=== PATIENT | male | born 1990 | race Caucasian/White ===

== ENCOUNTER 2020-07-01 02:30 | Emergency (ER) | payer OTHER, SELFPAY ==
[2020-07-01 02:35] VITALS: BP 137/84; PULSE 74; RESP 18; TEMP 36.3; O2SAT 98
--- NOTE | 2020-07-01 02:36 | DI.CT.S_ITS ---
PROCEDURE: CT KIDNEY URETER BLADDER (KUB) INDICATIONS: severe right flank pain with radiation to groin TECHNIQUE: Noncontrast 5 mm thick sections acquired from the diaphragms to the symphysis. 5 mm thick coronal and sagittal reformats were then performed. For radiation dose reduction, the following was used: automated exposure control, adjustment of mA and/or kV according to patient size. COMPARISON: None. FINDINGS: Image quality: Excellent. Lung bases: Lung bases are clear. Heart size is normal. Urinary system: There is a 4 mm stone distal right ureter at the ureterovesical junction. There is mild right hydronephrosis and hydroureter. Mild perinephric stranding in right kidney. No left renal stone or hydronephrosis. Both kidneys are normal in size. Bladder wall thickness is normal; no calcified bladder stones. Other solid organs: Liver is normal in size. Gallbladder is normal. Pancreas is normal in contours. Spleen is normal in size. No adrenal nodules. Peritoneum and bowel: Unenhanced bowel loops demonstrate normal wall thickness and caliber. Normal appendix. No free fluid or air. Nodes and vessels: No retroperitoneal or mesenteric adenopathy by size criteria. Aorta and inferior vena cava are normal in caliber. Abdominal wall: No ventral hernias. Pelvis: No free pelvic fluid. No inguinal hernias or adenopathy. Bones: No suspicious bony lesions. No vertebral body compression fractures. IMPRESSION: 1. A 4 mm obstructing stone in the distal right ureter at the ureterovesical junction. There is mild right hydronephrosis and hydroureter with perinephric stranding. 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 Dictated by: Emy Edwards M.D. on 07/01/2020 at 8:07 Approved by: Emy Edwards M.D. on 07/01/2020 at 8:11
--- NOTE | 2020-07-01 02:53 | ED_ITS ---
HPI - Male Genitourinary General Chief complaint: Urogenital-Male Stated complaint: thinks kidney stone - nausea Time Seen by Provider: 07/01/20 02:31 Source: patient and family Mode of arrival: Ambulatory Limitations: no limitations History of Present Illness HPI Narrative: 30M non smoker with history of kidney stones presents with a friend and the chief complaint of sudden onset of R flank pain with radiation in to his right groin. He now has difficulty generating urine stream. He states the pain came on suddenly a few hours ago and is coming and going without any apparent provocation or palliation. At times he feels it is quite intense and he needs to pace in the room. At other times it is merely a dull ache from his groin to his back. He is nauseated but denies any vomiting. He denies any fever or chills. He has had no chest pain or shortness of breath. He denies any exposure to ill persons. He has had 1 kidney stone before, he states approximately 3 mm. MD Complaint: other Onset (ago): hour(s) Duration: intermittent Location: right inguinal region and right flank Radiation: right flank Severity: severe Quality: burning, sharp and stabbing Relieving factors: none Exacerbating factors: none Associated symptoms: Reports nausea/vomiting Related Data Sexually active: Yes Previous Rx's Medication Instructions Recorded hydrocodone-acetaminophen 1 tab PO Q4-6H PRN #10 tab 07/01/20 ketorolac 10 mg PO Q6H PRN #14 tab 07/01/20 ondansetron 4 mg PO TID-QID PRN #10 tab 07/01/20 tamsulosin [Flomax] 0.4 mg PO DAILY #10 cap 07/01/20 Review of Systems Constitutional Constitutional: Denies chills, Denies fatigue, Denies fever(s), Denies frequent falls, Denies lethargy and Denies weakness Eyes Eyes: Denies change in vision, Denies eye discharge, Denies irritation and Denie s loss of vision ENT Ears, Nose, Mouth, and Throat: Denies change in voice, Denies dizziness, Denies neck pain, Denies sore throat and Denies throat swelling Cardiovascular Cardiovascular: Denies chest pain, Denies irregular heart rhythm, Denies lightheadedness, Denies palpitations, Denies dyspnea, Denies dyspnea on exertion and Denies orthopnea Respiratory Respiratory: Denies cough, Denies dyspnea, Denies dyspnea on exertion and Denies wheezing Gastrointestinal Gastrointestinal: Denies abdominal pain, Denies change in bowel habits, Denies diarrhea, Denies nausea and Denies vomiting Genitourinary Genitourinary: Reports difficulty urinating and Reports flank pain Genitourinary: Reports flank pain Musculoskeletal Musculoskeletal: Denies neck pain and Denies numbness Integumentary/Breasts Skin/Breast: Denies pruritus, Denies erythema, Denies rash and Denies wounds Neurologic Neurologic: Denies behavioral changes, Denies confusion, Denies dizziness, Denies frequent falls, Denies loss of vision, Denies numbness and Denies weakness Psychiatric Psychiatric: Denies anxiety, Denies behavioral changes, Denies confusion, Denies depression, Denies homicidal ideation and Denies suicidal ideation Endocrine Endocrine: Denies fatigue, Denies flushing and Denies palpitations Hematologic/Lymphatic Hematologic/Lymphatic: Denies easy bruising Allergic/Immunologic Allergic/Immunologic: Denies urticaria, Denies throat swelling and Denies wheezing Patient History Social History Smoking Status: Never smoker Smoking Status: Never smoker alcohol intake frequency: 0-2 drinks per day Substance Use Type: does not use Exam Narrative Exam Narrative: GENERAL: [30] year old patient appears stated age. Well- nourished, well-developed patient, in mild distress. Obviously uncomfortable, rubbing his flank HEAD: Atraumatic. Normocephalic. EYES: Pupils equal round and reactive. Extraocular motions intact. No scleral icterus. No injection or drainage. ENT: Nose without bleeding, purulent drainage. Throat without erythema, tonsillar hypertrophy or exudate. Airway patent. NECK: Trachea midline. Non tender CARDIOVASCULAR: Regular rate and rhythm without murmurs, gallops, or rubs. RESPIRATORY: Clear to auscultation. Breath sounds equal bilaterally. No wheezes, rales, or rhonchi. GASTROINTESTINAL: Abdomen soft, non-tender, nondistended. EXTREMITIES: No edema or joint tenderness. BACK: Nontender without deformity or crepitance. No flank tenderness. NEURO: AOx3. SKIN: No rash or erythema of visible areas Initial Vital Signs Initial Vital Signs: Vital Signs Temperature 97.4 F L 07/01/20 02:35 Pulse Rate 74 07/01/20 02:35 Respiratory Rate 18 07/01/20 02:35 Blood Pressure 137/84 07/01/20 02:35 Pulse Oximetry 98 07/01/20 02:35 Course Orders Ordered: ED Orders 07/01/20 02:20 Basic Metabolic Panel Stat Complete Blood Count AUTO DIFF Stat 07/01/20 02:36 CT kidney ureter bladder (KUB) Stat 07/01/20 03:34 Urinalysis and Microscopic Stat 07/01/20 04:10 Creatinine & eGFR Stat Discontinued Medications Hydrocodone Bitart/Acetaminophen (Vicodin 5/325 Prepack) 1 bottle MISC SEEINSTR ONE Stop: 07/01/20 03:25 Last Admin: 07/01/20 04:48 Dose: 1 bottle Documented by: MARIMAR Hydromorphone HCl (Dilaudid) 1 mg IV NOW ONE Stop: 07/01/20 03:25 Last Admin: 07/01/20 03:29 Dose: 1 mg Documented by: [email or web address] Sodium Chloride (Normal Saline 0.9%) 1,000 mls @ 1,000 mls/hr IV BOLUS ONE Stop: 07/01/20 03:35 Last Infusion: 07/01/20 04:30 Dose: 0 mls/hr Documented by: Admin: 07/01/20 03:28 Dose: 1,000 mls/hr Documented by: CASSIE Lidocaine HCl 6.6 ml/ Sodium (Chloride) 56.6 mls @ 339.6 mls/hr IV NOW ONE Stop: 07/01/20 02:40 Last Infusion: 07/01/20 03:15 Dose: 0 mls/hr Documented by: Admin: 07/01/20 03:04 Dose: 339.6 mls/hr Documented by: [email or web address] Sodium Chloride (Normal Saline 0.9%) 1,000 mls @ 1,000 mls/hr IV BOLUS ONE Stop: 07/01/20 05:32 Last Infusion: 07/01/20 04:52 Dose: 0 mls/hr Documented by: Admin: 07/01/20 04:34 Dose: 1,000 mls/hr Documented by: MARIMAR Ketorolac Tromethamine (Toradol) 15 mg IV NOW ONE Stop: 07/01/20 02:37 Last Admin: 07/01/20 03:05 Dose: 15 mg Documented by: CASSIE Ondansetron HCl (Zofran Odt Prepack) 1 bottle MISC SEEINSTR ONE Stop: 07/01/20 03:25 Last Admin: 07/01/20 04:48 Dose: 1 bottle Documented by: MARIMAR Reevaluation(s) Reevaluation #1: patient feeling much better after the above stated therapies Vital Signs Vital signs: Vital Signs - 8 hr 07/01/20 02:35 07/01/20 04:53 Temperature 97.4 F L Pulse Rate 74 66 Respiratory Rate 18 14 Blood Pressure 137/84 125/76 Pulse Oximetry 98 100 MDM - Male Genitourinary Lab Data Result diagrams: 07/01/20 02:20 07/01/20 04:10 Labs: Lab Results 07/01/20 07/01/20 07/01/20 Range/Units 02:20 02:20 03:34 WBC 8.2 (4.5-11.0) X10^3/uL RBC 5.02 (4.5-5.9) X10^6/uL Hgb 14.7 (13.5-17.5) g/dL Hct 43.0 (41-53) % MCV 85.6 (80-100) fL MCH 29.3 (26-34) PG MCHC 34.3 (30-36) % RDW 12.3 (11.6-14.8) % Plt Count 233 (150-400) X10^3/uL Neut % (Auto) 64.8 (50-75) % Lymph % (Auto) 23.5 L (25-40) % Hodgeman % (Auto) 8.9 (3-14) % Eos % (Auto) 2.4 (2-4) % Baso % (Auto) 0.4 (0-2) % Neut # (Auto) 5300 (5078-6957) /uL Lymph # (Auto) 1900 (1556-6510) /uL Hodgeman # (Auto) 700 (0-900) /uL Eos # (Auto) 200 (0-450) /uL Baso # (Auto) 0 (0-100) /uL Sodium 134 L (137-145) mmol/L Potassium 3.7 (3.4-5.1) mmol/L Chloride 101 (98-107) mmol/L Carbon Dioxide 26 (22-32) mmol/L BUN 19 (9-20) mg/dL Creatinine 1.46 H (0.66-1.25) mg/dL Estimated GFR 57.1 L (>60) mL/min BUN/Creatinine Ratio 13.0 (6-22) Glucose 106 H (70-100) mg/dL Calcium 9.0 (8.4-10.2) mg/dL Urine Color Yellow Urine Appearance Clear Urine pH 5.0 (4.5-8.0) Ur Specific Rupert 1.015 (1.000-1.035) Urine Protein Negative (Negative) Urine Glucose (UA) Negative (Negative) g/dL Urine Ketones Negative (NEGATIVE) Urine Occult Blood 1+ H (Negative) Urine Nitrate Negative (Negative) Urine Bilirubin Negative (NEGATIVE) Urine Urobilinogen 0.2 (0.2) E.U./dL Ur Leukocyte Esterase Negative (NEGATIVE) Urine RBC 1-5/hpf (0-5/HPF) Urine WBC None seen (0-5/HPF) Ur Squamous Epith Cells 0-1 /hpf (0-5/HPF) Urine Bacteria Occasional (0-1) (None) Urine Mucus 1+ H (Negative) Ur Culture Indicated? Cult not indicated 07/01/20 Range/Units 04:10 WBC (4.5-11.0) X10^3/uL RBC (4.5-5.9) X10^6/uL Hgb (13.5-17.5) g/dL Hct (41-53) % MCV (80-100) fL MCH (26-34) PG MCHC (30-36) % RDW (11.6-14.8) % Plt Count (150-400) X10^3/uL Neut % (Auto) (50-75) % Lymph % (Auto) (25-40) % Hodgeman % (Auto) (3-14) % Eos % (Auto) (2-4) % Baso % (Auto) (0-2) % Neut # (Auto) (5395-5752) /uL Lymph # (Auto) (6209-2114) /uL Hodgeman # (Auto) (0-900) /uL Eos # (Auto) (0-450) /uL Baso # (Auto) (0-100) /uL Sodium (137-145) mmol/L Potassium (3.4-5.1) mmol/L Chloride (98-107) mmol/L Carbon Dioxide (22-32) mmol/L BUN (9-20) mg/dL Creatinine 1.46 H (0.66-1.25) mg/dL Estimated GFR 57.1 L (>60) mL/min BUN/Creatinine Ratio (6-22) Glucose (70-100) mg/dL Calcium (8.4-10.2) mg/dL Urine Color Urine Appearance Urine pH (4.5-8.0) Ur Specific Rupert (1.000-1.035) Urine Protein (Negative) Urine Glucose (UA) (Negative) g/dL Urine Ketones (NEGATIVE) Urine Occult Blood (Negative) Urine Nitrate (Negative) Urine Bilirubin (NEGATIVE) Urine Urobilinogen (0.2) E.U./dL Ur Leukocyte Esterase (NEGATIVE) Urine RBC (0-5/HPF) Urine WBC (0-5/HPF) Ur Squamous Epith Cells (0-5/HPF) Urine Bacteria (None) Urine Mucus (Negative) Ur Culture Indicated? Urine Dip Bedside Urine Glucose Negative Bedside Urine Bilirubin - Negative Bedside Urine Ketone - Negative Urine Specific Rupert 1.015 Bedside Urine Occult Blood + Bedside Urine pH 6.0 Bedside Urine Protein - Negative Bedside Urine Urobilinogen - Negative Bedside Urine Nitrite - Negative Bedside Urine Leukocytes - Negative Esterase Imaging Data CT scan - abdomen/pelvis: Radiologist's Impression: Right obstructive uropathy secondary to 3.5 mm distal ureteral calculus Discharge Plan Departure Patient Disposition: Home Clinical Impression: Kidney stone on right side Discharge Date/Time: 07/01/20 04:50 Instructions: DI for Kidney Stones Activity Restrictions/Additional Instructions: *You have been diagnosed with [ right sided kidney stone ] *What to do: *Take medications as directed *Follow up with your primary care provider in 2-3 days, call for an appointment. Let them know you were seen in the Emergency Department and that we ask that you be seen in follow up *Return to ER if you should have any new, worsening or concerning symptoms, such as [worsening pain, fever > 101F, persistent vomiting, or other bothersome symptoms ] Prescriptions: New hydrocodone-acetaminophen 5-325 mg tablet 1 tab PO Q4-6H PRN (Reason: pain) Qty: 10 RF: 0 ketorolac 10 mg tablet 10 mg PO Q6H PRN (Reason: pain) Qty: 14 RF: 0 tamsulosin [Flomax] 0.4 mg capsule 0.4 mg PO DAILY Qty: 10 RF: 0 ondansetron 4 mg tablet,disintegrating 4 mg PO TID-QID PRN (Reason: nausea and vomiting) Qty: 10 RF: 0 Referrals: Cyndy Lock MD [Physician] -
[2020-07-01] MEDS: LIDOCAINE 2% IV (03:04)
[2020-07-01] MEDS: SODIUM CHLORIDE 0.9% IV (03:04)
[2020-07-01] MEDS: KETOROLAC 60 MG/2 ML VIAL 15 MG IV (03:05)
[2020-07-01] MEDS: SODIUM CHLORIDE 0.9% 1,000 ML 1000 ML IV ×2 (03:28→04:34)
[2020-07-01] MEDS: HYDROMORPHONE 1 MG INJ IV (03:29)
[2020-07-01 03:30] LABS: Add Manual Diff / Slide Review NO; Basophils Absolute Auto 0 /uL (0-100); Basophils Percent Auto 0.4 % (0-2); Eosinophils Absolute Auto 200 /uL (0-450); Eosinophils Percent Auto 2.4 % (2-4); Hemoglobin 14.7 g/dL (13.5-17.5); Lymphocytes Absolute Auto 1900 /uL (1100-4500); Lymphocytes Percent Auto 23.5 % (25-40); Mean Corpuscular HGB Conc 34.3 % (30-36); Mean Corpuscular Hemoglobin 29.3 PG (26-34); Mean Corpuscular Volume 85.6 fL (80-100); Monocytes Absolute Auto 700 /uL (0-900); Monocytes Percent Auto 8.9 % (3-14); Neutrophils Absolute Auto 5300 /uL (1500-7000); Neutrophils Percent Auto 64.8 % (50-75); Platelet Count 233 X10^3/uL (150-400); Red Blood Cell Count 5.02 X10^6/uL (4.5-5.9); Red Cell Distribution Width 12.3 % (11.6-14.8); White Blood Cell Count 8.2 X10^3/uL (4.5-11.0)
[2020-07-01 03:36] LABS: Blood Urea Nitrogen 19 mg/dL (9-20); Carbon Dioxide 26 mmol/L (22-32); Chloride 101 mmol/L (98-107); Estimated Glomerular Filt Rate 57.1 mL/min (>60); Glucose 106 mg/dL (70-100); HEMOLYSIS < 15 (0-50); Potassium 3.7 mmol/L (3.4-5.1); Sodium 134 mmol/L (137-145)
[2020-07-01 03:44] LABS: WBC Urine None Seen (0-5/HPF)
[2020-07-01 03:45] LABS: Appearance Urine UA CLEAR; Bilirubin Urine UA NEGATIVE (NEGATIVE); Color Urine UA YELLOW; Glucose Urine UA NEGATIVE (Negative); Ketones Urine UA NEGATIVE (NEGATIVE); Leukocyte Esterase Urine UA NEGATIVE (NEGATIVE); Nitrite Urine UA NEGATIVE (Negative); Occult Blood Urine UA 1+ (Negative); Protein Urine UA NEGATIVE (Negative); Specific Gravity Urine UA 1.015 (1.000-1.035); Urobilinogen Urine UA 0.2 E.U./dL (0.2)
[2020-07-01 03:52] LABS: RBC Urine 1-5/HPF (0-5/HPF)
[2020-07-01 03:54] LABS: Bacteria Urine Occasional (0-1); Squamous Epithelial Cell Urine 0-1 /HPF (0-5/HPF)
[2020-07-01 03:55] LABS: Culture Indicated Urine Cult Not Indicated; Mucus Urine 1+ (Negative)
[2020-07-01 04:26] LABS: Estimated Glomerular Filt Rate 57.1 mL/min (>60)
[2020-07-01] MEDS: ONDANSETRON 4 MG ODT PREPACK 1 BOTTLE MISC (04:48)
[2020-07-01] MEDS: HYDROCODONE/ACET 5/325 PREPACK 1 BOTTLE MISC (04:48)
[2020-07-01 04:53] VITALS: BP 125/76; PULSE 66; RESP 14; O2SAT 100
== END 2020-07-01 04:50 | disposition home or self-care (01) ==
PROVIDERS: Emergency Provider Emergency Medicine
DX: N20.0 Calculus of kidney (principal); R11.0 Nausea
CPT/HCPCS: 36415; 74176; 80048; 81001; 81003; 82565; 85025; 96361; 96374; 96375; 99284; J1170; J1885